=== PATIENT | male | born 1985 | race African-American/Black ===

== ENCOUNTER 2022-07-25 15:36 | Emergency (ER) | payer OTHER ==
[~2022-07-25] VITALS: Ht 180.3 cm; Wt 77.0 kg
[2022-07-25 15:43] VITALS: BP 123/86
== END 2022-07-25 17:09 | disposition left against medical advice (07) ==
LOC: ER 15:36
DX: R55 Syncope and collapse (principal); F32.A Depression, unspecified; F12.90 Cannabis use, unspecified, uncomplicated
CPT/HCPCS: 82962; 99283